=== PATIENT | male | born 1975 | race Caucasian/White ===

== ENCOUNTER 2024-04-08 08:54 | Day surgery (SDC) | payer OTHER ==
[~2024-04-08] VITALS: Ht 180.3 cm; Wt 89.2 kg
[2024-04-08] VITALS (17 sets, daily range): BP systolic 93–120; BP diastolic 66–85
[~2024-04-08 08:54] MED LIST: CETI5 PO; HYDACE5325 PO; HYDR1TAB94 PO; LORA10 PO; Lactated Ringer's 1,000 ML IV SCH; PARO25 PO; Percocet 5-3251 EACH PO; QUET100 PO; RXHYD5325 PO; ZOCOR20 MG PO
--- NOTE | 2024-04-08 09:52 | NUR ---
Ambulatory in Day Surgery. History, Chart, Medications and Allergies reviewed before start of procedure. Lungs clear T/O to Auscultation. Patient confirms NPO status and agrees with scheduled surgery. Patient States Post-Procedure ride home has been arranged.
[2024-04-08] MEDS ORDERED: propofoL 40 ML IV ONE (10:12)
--- NOTE | 2024-04-08 10:21 | NUR ---
04/08/24 1021 Regulo Unger HISTORY, CHART, MEDICATIONS AND ALLERGIES REVIEWED BEFORE START OF PROCEDURE. PATIENT CONFIRMS NPO STATUS AND AGREES WITH SCHEDULED PROCEDURE. 3-LEAD EKG REVIEWED WITH PHYSICIAN PRIOR TO START OF PROCEDURE. MONITOR INTACT WITH CONTINUOUS PULSE OXIMETRY,CAPNOGRAPHY, 3-LEAD EKG, INTERMITTENT BP. SUPPLEMENTAL O2 TO BE TITRATED THROUGHOUT PROCEDURE TO MAINTAIN O2 SATURATION ABOVE 90%. PATIENT DETERMINED TO BE ASA APPROPRIATE FOR PROPOFOL SEDATION PRIOR TO START OF PROCEDURE BY DR. GILBERT.
--- NOTE | 2024-04-08 11:21 | NUR ---
Discharge instructions reviewed with patient. Patient verbalizes understanding. Copy given to patient to take home. Patient States Post-Procedure ride home has been arranged. Discharged via wheelchair to private car for ride home.
== END 2024-04-08 11:21 | disposition home or self-care (01) ==
LOC: ORSCMMR 08:54 → ORD 10:00 → ORSCMMR 10:00
PROVIDERS: Internal Medicine Gastroenterology
PROC: 0DBL8ZX Excision of Transverse Colon, Via Natural or Artificial Opening Endoscopic, Diagnostic (ICD-10-PCS; principal; 2024-04-08 10:00)
DX: Z12.11 Encounter for screening for malignant neoplasm of colon (principal); D12.3 Benign neoplasm of transverse colon; K57.30 Diverticulosis of large intestine without perforation or abscess without bleeding; E78.00 Pure hypercholesterolemia, unspecified; F32.A Depression, unspecified; Z79.899 Other long term (current) drug therapy
CPT/HCPCS: 88305; J2704; J7120